=== PATIENT | male | born 1985 | race Caucasian/White ===

== ENCOUNTER 2017-06-23 10:50 | Emergency (ER) | payer OTHER ==
[~2017-06-23] VITALS: Ht 185.4 cm; Wt 100.0 kg
[~2017-06-23 10:50] MED LIST: DIFL500T PO; Z.0.NO CURRENT MEDS
[2017-06-23 10:53] VITALS: BP 137/91; PULSE 83; RESP 15; TEMP 98.5; O2SAT 100
[2017-06-23] MEDS ORDERED: ROBA500T PO (11:36)
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
[2017-06-23] MEDS ORDERED: KETOROLAC TROMETHAMINE 60 MG/2 ML (IM) VIAL IM ONE (11:45)
== END 2017-06-23 13:52 | disposition home or self-care (01) ==
LOC: NEPK 10:50
DX: S13.4XXA Sprain of ligaments of cervical spine, initial encounter (principal); V59.40XA Driver of pick-up truck or van injured in collision with unspecified motor vehicles in traffic accident, initial encounter; Y92.488 Other paved roadways as the place of occurrence of the external cause
CPT/HCPCS: 96372; 99284; J1885